=== PATIENT | male | born 1990 | race Caucasian/White ===

== ENCOUNTER 2023-04-17 09:41 | Emergency (ER) | payer OTHER, SELFPAY ==
[2023-04-17 09:46] VITALS: BP 125/71; PULSE 85; RESP 22; TEMP 36.6; O2SAT 99; BMI 38.1
--- NOTE | 2023-04-17 10:08 | CRLHL7_ITS ---
For Patients: As a result of the Century Cures Act, medical imaging exams and procedure reports are released immediately into your electronic medical record. You may view this report before your referring provider. If you have questions, please contact your health care provider. INDICATION: Trauma. Fall. Pain. TECHNIQUE: Three views of the right ankle. FINDINGS: Acute complete non is record spiral fracture distal right fibula with associated soft tissue swelling. The tibiotalar joint space is intact. There is likely a small posterior malleolar fracture as well. The medial malleolus is unremarkable. IMPRESSION: 1. No fracture distal right fibula. 2. Probable posterior malleolar fracture as well. Soft tissue swelling. Dictated by Cosmo Lee MD @ 04/17/2023 10:43:12 AM (Electronically Signed)
--- NOTE | 2023-04-17 11:11 | ED_ITS ---
HPI - General Adult General Date Seen: 04/17/23 Chief complaint: Extremity Pain/Injury, Lower Stated complaint: Slipped on ice, R ankle is hurting Time Seen by Provider: 04/17/23 10:37 History of Present Illness HPI narrative: This is a very pleasant generally healthy 32-year-old male who presents to the ER today with a right ankle injury. He injured his ankle this morning just prior to arrival. He was taking his dog outside. His dog was excited to sees no and ran off and pulled him heart a leash. The patient slipped because of the slippery snowy ground and twisted his ankle. He describes a 45 degree external rotation injury and he felt a pop over his lateral malleolus and with pain and swelling since then. No pain medially. No pain radiating up to his knee. No associated numbness or tingling in his foot. No other injuries when he fell. Related Data Home Medications Medication Instructions Recorded Confirmed bupropion HCl 150 mg 24 hr tablet, 150 mg PO DAILY 04/17/23 04/17/23 extended release bupropion HCl 300 mg 24 hr tablet, 300 mg PO DAILY 04/17/23 04/17/23 extended release losartan 25 mg tablet 25 mg PO DAILY 04/17/23 04/17/23 trazodone 100 mg tablet 200 mg PO QPM PRN 04/17/23 04/17/23 Previous Rx's Medication Instructions Recorded hydrocodone 5 mg-acetaminophen 325 1 - 2 tab PO Q4-6H PRN pain #20 04/17/23 mg tablet tabs ondansetron 4 mg disintegrating 4 mg PO Q8H PRN nausea and 04/17/23 tablet vomiting #10 tabs Allergies Allergy/AdvReac Type Severity Reaction Status Date / Time No Known Drug Allergies Allergy Verified 04/17/23 09:49 PFSH PFSH Social History Smoking Status: Never smoker Do you use any of these nicotine containing products: None How often do you have a drink containing alcohol: never AUDIT-C Alcohol total score: 0 Non-prescribed substance use: denies use Exam Narrative: Exam Narrative: Constitutional: Appears well-developed and well-nourished. Alert. Conversant. Non toxic. HENT: Head: Atraumatic. Nose: Nose normal. Mouth/Throat: Oral mucosa is clear and moist. no trismus. Pharynx normal. Tonsils symmetric. No tonsillar enlargement, erythema, or exudate. Eyes: Conjunctivae normal. EOM normal. Pupils equal, round, and reactive to light. No scleral icterus. Neck: Normal range of motion. Neck supple. No tracheal deviation present. Cardiovascular: Normal rate, regular rhythm. No gallop. No friction rub. No murmur heard. Symmetric DP and PT artery pulses . Normal distal cap refill in both feet. Pulmonary/Chest: Effort normal. No stridor. No respiratory distress. No wheezes. No rales. No rhonchi Musculoskeletal: RUE: Normal range of motion. No tenderness. No deformity LUE: Normal range of motion. No tenderness. No deformity RLE: Normal range of motion in his hip and knee. No tenderness over the patella, proximal fibula, proximal tibia. Gastrocnemius and calf nontender. Kaur nontender. He does have swelling and tenderness over the lateral malleolus. No tenderness over the medial malleolus. Range of motion ankle is limited by pain. Calcaneus/heel, midfoot, proximal 5th metatarsal, forefoot, and toes are nontender. LLE: Normal range of motion. No edema. No tenderness. No deformity Lymph: No cervical adenopathy. Neurological: Alert and oriented to person, place, and time. Normal strength. CN II-VII intact. No sensory deficit. GCS eye subscore is 4. GCS verbal subscore is 5. GCS motor subscore is 6. Normal coordination intact distal sensory function on the medial and lateral malleolus, medial and lateral foot, dorsal 1st webspace, sole of the foot. Skin: Skin is warm and dry. No rash noted. No pallor. Normal capillary refill. Psychiatric: Normal mood. Normal affect. Const: Vital Signs, click to edit/add: Vital Signs - 24 hr 04/17/23 09:46 Temperature 97.8 F Pulse Rate [Pulse Oximeter] 85 Respiratory Rate 22 Blood Pressure [Ri ght Upper Arm] 125/71 Pulse Oximetry 99 Oxygen Delivery Me thod Room Air Course Vital Signs Vital signs: Initial Vital Signs Temperature 97.8 F 04/17/23 09:46 Temperature Source Temporal Artery Scan 04/17/23 09:46 Pulse Rate 85 04/17/23 09:46 Respiratory Rate 22 04/17/23 09:46 Blood Pressure 125/71 04/17/23 09:46 Blood Pressure Mean 89 04/17/23 09:46 Blood Pressure Position Sitting 04/17/23 09:46 Pulse Oximetry 99 04/17/23 09:46 Oxygen Delivery Method Room Air 04/17/23 09:46 Vital Signs Temperature 97.8 F 04/17/23 09:46 Pulse Rate 85 04/17/23 09:46 Respiratory Rate 22 04/17/23 09:46 Blood Pressure 125/71 04/17/23 09:46 Pulse Oximetry 99 04/17/23 09:46 Oxygen Delivery Method Room Air 04/17/23 09:46 Temperature 97.8 F 04/17/23 09:46 Pulse Rate 85 04/17/23 09:46 Respiratory Rate 22 04/17/23 09:46 Blood Pressure 125/71 04/17/23 09:46 Pulse Oximetry 99 04/17/23 09:46 Oxygen Delivery Method Room Air 04/17/23 09:46 Medications Administered Medications: Discontinued Medications Generic Name Dose Route Start Last Admin Trade Name Freq PRN Reason Stop Dose Admin Hydrocodone Bitart/Acetaminophen 1 tab 04/17/23 10:56 04/17/23 11:15 Hydrocodone-Acetamin 5-325 Mg 1 Tab PO 04/17/23 10:57 1 tab ONCE ONE Administration Ondansetron HCl 4 mg 04/17/23 10:56 04/17/23 11:15 Ondansetron Odt 4 Mg Tab PO 04/17/23 10:57 4 mg ONCE ONE Administration Medical Decision Making [facility] Narrative Medical decision making narrative: Previously healthy 32-year-old male presents to the ER today with an isolated right ankle injury after he slipped on the snowy ground this morning. Clinical exam and x-rays confirm a minimally displaced oblique fracture through the distal fibula. Other than the fracture the ankle mortise looks okay and medial malleolus/posterior malleolus appeared to be uninjured. He is neurovascularly intact. No evidence for compartment syndrome. No evidence for lelia new injury. X-rays were reviewed with the on-call orthopedist. They recommend splinting and fiberglass, nonweightbearing on crutches, follow-up in orthopedic clinic. There is a chance the patient will require operative fixation but may heal non operatively. The patient expresses that he strongly wants to avoid an operation for financial reasons. [place] (with Zofran) administered for pain relief here in the ER. Prescription for [place] provided. Opiate precautions reviewed. Discussed splint care and fracture care. rest, ice, elevation. Nonweightbearing on crutches with splint. He will follow-up in the [facility] within the next 3-5 days for evaluation and to determine the true need for ORIF. Precautions for return to the ER reviewed Imaging Data XR right ankle: Attestation: I have reviewed the pertinent imaging results. My impression: Distal fibula fracture. Radiologist's impression: IMPRESSION: 1. No fracture distal right fibula. 2. Probable posterior malleolar fracture as well. Soft tissue swelling. Discharge Plan Discharge Clinical Impression: Ankle fracture Patient Disposition: Home, Self-Care Condition: Stable Instructions: Ankle Fracture (DC), Crutch Instructions (ED), Splint Care (ED) Additional Instructions: Please call the [facility] tomorrow morning at 5:07 a.m. [phone] arrange or ER follow-up appointment (appointment within 3-5 days). Keep your injured foot elevated at the level of your way story your heart when possible for the next few days to reduce bruising and swelling. Use an ice pack for 20 minutes every 3-4 hours during the day for the next 3-4 days. Use ove [id number] pain medications such as ibuprofen or Tylenol as needed for pain. Use prescription pain killer needed for pain uncontrolled by [id number] medications. Be careful with prescription [place] because it is addictive, can cause drowsiness, dizziness, constipation. Use Zofran if needed for nausea. If you have any concerns, especially worsening or uncontrolled pain, numbness or tingling in her foot, paleness or pallor of your toes, return to the ER immediately. Prescriptions: New hydrocodone-acetaminophen 5-325 mg tablet 1 - 2 tab PO Q4-6H PRN (Reason: pain) Qty: 20 0RF ondansetron 4 mg tablet,disintegrating 4 mg PO Q8H PRN (Reason: nausea and vomiting) Qty: 10 0RF No Action trazodone 100 mg tablet 200 mg PO QPM PRN losartan 25 mg tablet 25 mg PO DAILY bupropion HCl 300 mg tablet extended release 24 hr 300 mg PO DAILY bupropion HCl 150 mg tablet extended release 24 hr 150 mg PO DAILY Follow Up/Referrals: SARA HARMON DO [Primary Care Provider] - Stand Alone Forms: [facility] Info Instructions Procedures Orthopedic Splinting/Casting Right ankle fracture: Side: right Lower Extremity Injury Location: ankle Lower extremity immobilizer: stirrup splint (Posterior mold in stirrups splint) Applied by clinician: / Other Orthopedic Equipment: crutches Conclusion: patient tolerated procedure
[2023-04-17] MEDS: HYDROCODONE-ACETAMIN 5-325 MG 1 TAB PO (11:15)
[2023-04-17] MEDS: ONDANSETRON ODT 4 MG TAB PO (11:15)
== END 2023-04-17 13:03 | disposition home or self-care (01) ==
PROVIDERS: Emergency Provider Emergency Medicine; PCP Student in an Organized Health Care Education/Training Program
DX: S82.491A Other fracture of shaft of right fibula, initial encounter for closed fracture (principal); W00.0XXA Fall on same level due to ice and snow, initial encounter
CPT/HCPCS: 29515; 73610; 99283; A9270

== ENCOUNTER 2023-04-29 06:03 | Day surgery (SDC) | payer OTHER, SELFPAY ==
[2023-04-29] VITALS (16 sets, daily range): BP systolic 123–147; BP diastolic 78–108; PULSE 60–77; RESP 16–18; TEMP 36.1–36.7; O2SAT 91–100; BMI 38.7
[2023-04-29] MEDS: fentaNYL 100 MCG/2 ML inj IVP (06:29)
[2023-04-29] MEDS: MIDAZOLAM HCL 1 MG/ML inj IVP (06:29)
[2023-04-29] MEDS: LACTATED RINGERS 1000 ML 1,000 ML 100 ML IV ×2 (07:00→09:08)
[2023-04-29] MEDS: SODIUM CHLORIDE 0.9 % (FLUSH) 10 ML SYRINGE IVF (07:02)
--- NOTE | 2023-04-29 07:10 | SUR.PREOP ---
TIME?OUT:?0720 PT/RN/MDA?VERIFICATION?OF?SURGICAL?SITE,?PROCEDURE,?AND?CONSENT OBTAINED?PRIOR?TO?INVASIVE?PROCEDURE.
--- NOTE | 2023-04-29 07:11 | W.PM.H&PU ---
History & Physical Update History & Physical Update H&P Reviewed and patient assessed: No changes noted
--- NOTE | 2023-04-29 07:39 | SUR.PREOP ---
TIME?OUT:?0720 PT/RN/MDA?VERIFICATION?OF?SURGICAL?SITE,?PROCEDURE,?AND?CONSENT OBTAINED?PRIOR?TO?INVASIVE?PROCEDURE.
--- NOTE | 2023-04-29 08:00 | CRLHL7_ITS ---
For Patients: As a result of the Cures Act, medical imaging exams and procedure reports are released immediately into your electronic medical record. You may view this report before your referring provider. If you have questions, please contact your health care provider. Indication: RIGHT ANKLE ORIF Technique: Four fluoroscopic images right ankle. Fluoroscopic time is 33.7 seconds. IMPRESSION: Fluoroscopic guidance for open reduction internal fixation distal fibular fracture. Dictated by Ignacio Mcgregor MD @ 04/29/2023 3:07:45 PM (Electronically Signed)
--- NOTE | 2023-04-29 08:16 | P.ORPRC_ITS ---
Procedure Note Date of procedure: 04/29/23 Procedure: PREOPERATIVE DIAGNOSES: 1. Right ankle lateral malleolus fracture (with bimalleolar equivalent) - unstable on stress imaging 2. Right ankle posterior malleolus fracture POSTOPERATIVE DIAGNOSES: 1. Right ankle lateral malleolus fracture with intact syndesmosis 2. Right ankle posterior malleolus fracture PROCEDURE: 1. Right ankle lateral malleolus open reduction with internal fixation. 2. Intraoperative fluoroscopy <53 minutes (CPT CODE 7600) SURGEON: Prasanna Blanc MD PLASTIC SURGERY SPECIALIST: Katia Johnson P.A.-C.; An triage assistant was critical for this case to aide in patient positioning, leg manipulation, tissue retraction, closure, and splinting. ANESTHESIA: Spinal with popliteal and adductor canal blocks IMPLANTS: Arthrex distal fibular locking plate with 3.0 distal locking, 3.5mm proximal nonlocking screws, 3.5 mm lag screw. TOURNIQUET: 68 minutes at 250 mmHg. INDICATIONS: The patient is a 32-year-old male who sustained a right ankle injury in the recent past with difficulty bearing weight. Workup included x- rays which revealed an unstable ankle fracture. Given these findings, surgery was recommended to stabilize the ankle and allow for anatomic healing. FINDINGS: Closed, oblique, mildly displaced Dc B lateral malleolus fracture. Small, mildly displaced posterior malleolus fracture. Syndesmosis was intact and ankle was stable to external rotation stress after fixation of the distal fibula. PROCEDURE: Following a thorough discussion of risks, benefits, and alternatives, consent was obtained and the operative extremity was marked. Popliteal and adductor canal blocks were performed by anesthesia staff. The patient was brought to the operating room, and spinal anesthesia was administered. He was then placed supine on the operating table and all bony prominences were well padded. A surgical time out was performed confirming patient identity, surgical site, and procedure. 3 g IV Ancef was administered within 1 hour of incision preoperatively. The right lower extremity was prepped and draped in the appropriate sterile fashion using ChloraPrep prep. The operative extremity was elevated and exsanguinated, and the tourniquet inflated to 250 mmHg. A longitudinal incision was made overlying the posterior border of the distal fibula. Sharp incision was carried through skin and subcutaneous tissue, while protecting any crossing neurologic structures. The fracture was identified, and cleared of interposed periosteum and fracture hematoma. The fracture site was thoroughly irrigated with normal saline. The fracture was reduced and temporarily held with a reduction clamp. A 3.5 mm lag screw was placed an anterior-posterior direction perpendicular to the fracture site. Distal fibular locking plate was then selected and contoured to fit on the lateral aspect of the distal fibula. This was fixed proximally with 3.5 mm cortical screw. It was then fixed distally with 3.5 mm unicortical locking screws. Two additional bicortical 3.5 mm nonlocking screws were then placed proximally. Fluoroscopic imaging was utilized confirming anatomic reduction of the fracture and satisfactory placement of the plate and screws. An external rotation stress was then applied which revealed no widening of the syndesmosis or medial clear space. The wound was thoroughly irrigated with normal saline. Deep subcutaenous tissues were closed over the plate with #0 Vicryl. The tourniquet was deflated. Total tourniquet time was 68 minutes. Hemostasis achieved with electrocautery. Subcutaneous tissues were closed with 2-0 Vicryl for the subcutaneous tissues, and skin was closed with 3-0 nylon. Sterile dressings and a well-padded short- leg splint were applied. The patient was awoken from anesthesia and transferred to the PACU in stable condition. PLAN: 1. Ice and elevate operative extremity. 2. Keep splint clean and dry 3. Tylenol and oxycodone for pain as needed. 4. Toe touch weightbearing operative extremity. 5. Discharge home. 6. Follow up in orthopedic clinic in 10-14 days for splint removal and wound check.
--- NOTE | 2023-04-29 11:02 | W.ANESCHARGE ---
Anesthesia Charges Start Date/Time Anesthesia Start Date: 04/29/23 Anesthesia Start Time: 08:36 Stop Date/Time Anesthesia Stop Date: 04/29/23 Anesthesia Stop Time: 11:01
--- NOTE | 2023-04-29 11:25 | P.NB_ITS ---
Nerve Block Nerve Block Time Seen by Provider: 07:15 Date Seen: 04/29/23 Type of block requested by surgeon for post-operative analgesia: popliteal Side: right Time out performed: Yes Verification of patient name: Yes Verification of date of : Yes Site marking: site marked Name of person performing procedure: Geraldo Continuous monitoring Was continuous monitoring of O2 sat, B/P, surveillance system monitor, recorded every 15 minutes?: Yes Procedure Checklist: sterile prep, needles and gloves Ultrasound guided. Images saved: Yes Medications given in 5ml increments after negative aspiration: Ropivicaine %: 0.5 mL: 20 Needle gauge: 22 Patient tolerated procedure well: Yes Additional comments: Needle noted adjacent to nerve Block Charges Block Charge (with Pro Fee): Sciatic Nerve Use of Ultrasound Machine for Block: Yes- US Guidance/pain block
--- NOTE | 2023-04-29 11:25 | P.NB_ITS ---
Nerve Block Nerve Block Time Seen by Provider: 07:15 Date Seen: 04/29/23 Type of block requested by surgeon for post-operative analgesia: adductor canal Side: right Time out performed: Yes Verification of patient name: Yes Verification of date of : Yes Site marking: site marked Name of person performing procedure: Geraldo Continuous monitoring Was continuous monitoring of O2 sat, B/P, laboratory monitor, recorded every 15 minutes?: Yes Procedure Checklist: sterile prep, needles and gloves Ultrasound guided. Images saved: Yes Medications given in 5ml increments after negative aspiration: Ropivicaine %: 0.5 mL: 20 Needle gauge: 20 Patient tolerated procedure well: Yes Additional comments: Needle noted adjacent to nerve Block Charges Block Charge (with Pro Fee): Femoral Nerve Use of Ultrasound Machine for Block: Yes- US Guidance/pain block
--- NOTE | 2023-04-29 11:35 | SUR.PHASEI ---
patient met discharge criteria per anesthesia
== END 2023-04-29 12:47 | disposition home or self-care (01) ==
PROVIDERS: PCP Student in an Organized Health Care Education/Training Program; Visit Provider Orthopaedic Surgery
PROC: (CPT 27792; principal; 2023-04-29 08:00)
DX: S82.61XA Displaced fracture of lateral malleolus of right fibula, initial encounter for closed fracture (principal); S82.51XA Displaced fracture of medial malleolus of right tibia, initial encounter for closed fracture; G89.18 Other acute postprocedural pain
CPT/HCPCS: 27792; 01480; 64445; 64447; 73610; 76000; 76942; C1713; J0690; J1100; J2250; J2405; J2704; J2795; J3010; J3490; J7120